=== PATIENT | female | born 1990 | race Caucasian/White ===

== ENCOUNTER 2024-03-18 13:39 | Observation (INO) ==
--- NOTE | 2024-03-18 14:13 | Emergency Department Note ---
History of Present Illness General Chief complaint: Shoulder Pain Stated complaint: neck pain, ref by pt Time Seen by Provider: 03/18/24 13:48 History of Present Illness Maximum Pain Intensity: 10 This is a 33-year-old female that presents to the emergency department via private vehicle with complaints of "right arm/neck pain". Patient is right-hand dominant. She states that late last week she began with some discomfort to the right side of the neck/shoulder area. She then notes that this progressively worsened over the weekend and then this past Sunday presented to [place] emergency department where she notes that a CT scan was performed of her neck. She does have the results on her phone which does show no acute fracture and some generative changes. The patient was discharged home she notes on a course of oral muscle relaxers as well as steroids. She also received an injection of Toradol. She notes that the pain has continued and then she followed up with her PCP and was referred to physical therapy which she did start today. She also received IM Toradol with her PCP yesterday. She states that physical therapy today was quite painful and ultimately sent here for further evaluation and management. Patient notes that the pain is on the right side of the neck between the right neck and the right shoulder that radiates down the right arm. She also notes pain shooting into the right thumb and right second digit. She denies any known trauma or injury. She denies any fevers or chills. She does note that the pain radiates also to the anterior shoulder/chest area and then down the arm. No central chest pain. No shortness of breath. No history of UT or PE. Patient notes she has an allergy to latex. She notes she is otherwise healthy. No pertinent surgeries. No history of neck surgery. Home Medications Medication Instructions Recorded Confirmed Type Saccharomyces boulardii [Daily 1 cap PO DIRECTED 11/20/22 03/18/24 History Probiotic (S. boulardii)] cetirizine 10 mg capsule (Zyrtec) 10 mg PO DAILY PRN Allergy Symptoms 11/20/22 03/18/24 History hydrocortisone 2.5 % topical cream 1 applic UT DAILY PRN hemorrhoids 11/20/22 03/18/24 Rx with perineal applicator #30 grams cholecalciferol (vitamin D3) 25 25 mcg PO DAILY 12/06/23 03/18/24 History mcg (1,000 unit) capsule fluoxetine 20 mg tablet 20 mg PO DAILY 12/06/23 03/18/24 History mecobalamin (vitamin B12) 1,000 1,000 mcg PO DAILY 12/07/23 03/18/24 History mcg chewable tablet carisoprodol 350 mg tablet 350 mg PO TID PRN muscle spasms 03/18/24 03/18/24 History methylprednisolone 4 mg tablet 4 mg PO DIRECTED 03/18/24 03/18/24 History Allergies Allergy/AdvReac Type Severity Reaction Status Date / Time azithromycin AdvReac Unknown Unknown Verified 03/18/24 21:59 hydromorphone [From Dilaudid] AdvReac Nausea Verified 03/18/24 17:51 Past Med/Surg History Problem List (Updated 03/18/24 @ 20:03 by Allen Mason PA-C) Anxiety Arm pain, right (Acute) Right cervical radiculopathy (Acute) Vitamin D deficiency Iron deficiency Irritable bowel syndrome Anxiety and depression Allergic rhinitis Surgical History History of placement of ear tubes [place] teeth extracted Family History Father Diabetes ESRD (end stage renal disease) Mother No problems noted. Brother Hypertension Brother No problems noted. 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 [employer] How many Children do You have: 2 Feels Safe at Home: Yes Diet: regular Diet Comment: regular/ limits lactose caffeine: Yes during the past year weight has: remained stable Dental Care, Regularly: Yes Physical Activity Frequency: Daily Seatbelt Use: always Sunscreen Use: Yes Review of Systems A total of 10 systems reviewed and were otherwise negative Physical Exam Vital Signs Vital Signs - 24 hr 03/18/24 13:42 03/18/24 14:31 03/18/24 14:38 Temperature 36.8 C Temperature Source Temporal Artery Scan Pulse Rate 84 Pulse Rate [Apical] 95 H Pulse Rhythm [Apical] Regular Pulse Strength [Apical] Normal Respiratory Rate 15 19 Respiratory Effort / Characteristics Non-Labored Spontaneous Non-Labored Spontaneous Respiratory Depth Normal Normal Respiratory Pattern Regular Blood Pressure 161/100 H Blood Pressure [Left Arm] 146/83 H Blood Pressure Mean 120 Blood Pressure Mean [Left Arm] 104 Pulse Oximetry 100 96 100 Oxygen Delivery Method Room Air Room Air Sepsis Recent Fever Within 48 Hours No Sepsis New/Unexplained Change in Mental Status No Sepsis Action Taken by Nursing No Action Required VITAL SIGNS - Vital signs and nursing notes were reviewed. GENERAL - 33-year-old female appearing her stated age who is in no acute distress. Communicates well with provider and answers questions appropriately. SKIN - Without rashes. The skin overlying the C-spine and surrounding tissues are within normal limits. No crepitus. No edema. No erythema. No herpetic lesions. HEAD - NC/AT. EYES - PERRL with EOMI bilaterally. Sclera anicteric. EARS - No deformities of external structures noted on gross examination bilaterally. External auditory canals without discharge or otorrhea. Tympanic membranes pearly blankenship without retraction or bulging. No fluid or purulent material visualized behind the TM. Handle of malleus, umbo, cone of light, pars tensa/flaccid all easily visualized. NOSE - Midline and without cyanosis. No epistaxis or purulent drainage noted. Septum midline without deviation or septal hematoma noted. MOUTH/OROPHARYNX - Without perioral cyanosis. Buccal mucosa pink and moist and without leukoplakia. Tongue midline with equal elevation of palate bilaterally. No tonsillar hypertrophy, erythema, or exudates noted. Good dentition noted. Rest, stridor, trismus, wheezing or tripoding. Normal phonation. NECK - Neck with FROM. No nuchal rigidity. There is no muscle spasm palpable within the posterior or lateral musculature of the C-spine. There is no reproducible tenderness to palpation overlying the C-spine spinous processes or paraspinous musculature. LUNGS - CTA CARDIAC - RRR EXTREMITIES - No clubbing or peripheral cyanosis. No pretibial edema present. +5/5 strength noted in UE/LE bilaterally. NEUROLOGIC - Cranial nerves grossly intact. Bilateral biceps reflexes within normal limits. PSYCH -alert, oriented and pleasant on examination. Course Administered Medications Discontinued Medications Acetaminophen (Acetaminophen 325 Mg Tab) 650 mg PO NOW STA Stop: 03/18/24 15:33 Last Admin: 03/18/24 15:42 Dose: 650 mg Documented By: LUIS Cyclobenzaprine HCl (Cyclobenzaprine Hcl 10 Mg Tab) 10 mg PO NOW STA Stop: 03/18/24 19:39 Last Admin: 03/18/24 20:20 Dose: 10 mg Documented By: LORIE Dexamethasone Sodium Phosphate (DexamethasonePf 10 Mg/Ml Vial) 6 mg IV NOW ONE Stop: 03/18/24 18:26 Last Admin: 03/18/24 18:34 Dose: 6 mg Documented By: LUIS Gabapentin (Gabapentin 100 Mg Cap) 100 mg PO NOW STA Stop: 03/18/24 19:50 Last Admin: 03/18/24 20:20 Dose: 100 mg Documented By: LORIE Hydromorphone HCl (Hydromorphone Inj 0.5 Mg/0.5 Ml Syr) 0.5 mg IV NOW STA Stop: 03/18/24 14:11 Last Admin: 03/18/24 14:35 Dose: 0.5 mg Documented By: DENISE Promethazine HCl (Phenergan) 25 mg in 51 mls @ 204 mls/hr IV NOW STA Stop: 03/18/24 18:28 Last Infusion: 03/18/24 18:37 Dose: Infused Documented By: Admin: 03/18/24 18:21 Dose: 204 mls/hr Documented By: MORENITA Acetaminophen (Ofirmev) 1,000 mg in 100 mls @ 400 mls/hr IV NOW STA Stop: 03/18/24 19:24 Last Infusion: 03/18/24 19:31 Dose: Infused Documented By: Admin: 03/18/24 19:15 Dose: 400 mls/hr Documented By: LACY Ketorolac Tromethamine (Ketorolac Tromethamine 15 Mg/Ml Vial) 10 mg IV NOW ONE Stop: 03/18/24 15:30 Last Admin: 03/18/24 15:35 Dose: 10 mg Documented By: MORENITA Lidocaine (Lidocaine 5% 1 Patch) 1 patch TD NOW STA Stop: 03/18/24 15:33 Last Admin: 03/18/24 15:42 Dose: 1 patch Documented By: LUIS Ondansetron HCl (Ondansetron Inj 2 Mg/Ml 2 Ml Vial) 4 mg IV NOW STA Stop: 03/18/24 14:11 Last Admin: 03/18/24 14:34 Dose: 4 mg Documented By: DENISE Ondansetron HCl (Ondansetron Inj 2 Mg/Ml 2 Ml Vial) Confirm Administered Dose 4 mg .ROUTE .STK-MED ONE Stop: 03/18/24 16:51 Last Admin: 03/18/24 16:56 Dose: Not Given Documented By: LUIS Ondansetron HCl (Ondansetron Inj 2 Mg/Ml 2 Ml Vial) 4 mg IV NOW STA Stop: 03/18/24 16:50 Last Admin: 03/18/24 16:54 Dose: 4 mg Documented By: LUIS Pantoprazole Sodium (Pantoprazole 40 Mg Tab) 40 mg PO NOW STA Stop: 03/18/24 19:40 Last Admin: 03/18/24 20:20 Dose: 40 mg Documented By: LORIE Medical Decision Making Laboratory Data 03/18/24 14:20 03/18/24 14:20 Lab Results 03/18/24 Range/Units 14:20 WBC 9.93 (4.8-10.8) K/ul RBC 4.52 (4.20-5.40) M/uL Hgb 11.5 L (12.0-16.0) g/dl Hct 37.3 (37.0-47.0) % MCV 82.5 (80.0-100.0) fL MCH 25.4 (25.0-34.0) pg MCHC 30.8 L (32.0-36.0) g/dL RDW Std Deviation 41.0 (36.4-46.3) fL RDW Coeff of Nick 13.7 (11.5-14.5) % Plt Count 358 (130-400) K/uL MPV 9.7 (9.4-12.4) fL Immature Gran % (Auto) 0.3 % Neut % (Auto) 68.1 % Lymph % (Auto) 24.2 % [place] % (Auto) 6.7 % Eos % (Auto) 0.2 % Baso % (Auto) 0.5 % Neut # (Auto) 6.76 H (1.40-6.50) K/uL Lymph # (Auto) 2.40 (1.20-3.40) K/uL [place] # (Auto) 0.67 H (0.11-0.59) K/uL Eos # (Auto) 0.02 (0.00-0.50) K/uL Baso # (Auto) 0.05 (0.00-0.20) K/uL Immature Gran # (Auto) 0.03 (0.01-0.20) K/uL Sodium 140 (136-145) mmol/L Potassium 3.7 (3.5-5.1) mmol/L Chloride 105 (98-107) mmol/L Carbon Dioxide 26 (21-32) mmol/L Anion Gap 9 (3-11) BUN 17 (6-23) mg/dl Creatinine 0.57 L (0.6-1.2) mg/dl Est Cr Clr Drug Dosing 134.0 ml/min Est GFR ( Amer) 140.2 ml/min Est GFR (Non-Af Amer) 121.0 ml/min BUN/Creatinine Ratio 29.8 H (10-20) Glucose 89 (70-99(Fasting)) mg/dl Calcium 9.8 (8.6-10.3) mg/dl Total Bilirubin 0.3 (0.2-1.0) mg/dl AST 17 (13-39) U/L ALT 29 (7-52) U/L Alkaline Phosphatase 62 (34-104) U/L Troponin I High Sens < 2.3 (0-14) pg/ml Total Protein 8.2 (6.0-8.3) gm/dl Albumin 4.9 (3.4-5.0) gm/dl Globulin 3.3 (2.5-4.0) gm/dl Albumin/Globulin Ratio 1.5 (0.9-2) HCG, Qual Negative (Negative) Imaging Data Radiologist's Impression: Cervical Spine MRI 03/18/24 14:10 MRI OF THE CERVICAL SPINE WITHOUT CONTRAST CLINICAL HISTORY: Right sided neck, shoulder, arm pain COMPARISON: None. TECHNIQUE: Utilizing a 1.5 Jessika magnet and dedicated coil, multiplanar, multiecho imaging of the cervical spine was performed without IV contrast. FINDINGS: There is reversal of the cervical lordosis. Vertebral body heights are maintained. No marrow edema or marrow replacement is present. Cervical cord signal and caliber are normal. There is no intracanalicular mass or fluid collection. Paravertebral soft tissues are unremarkable. Visualized portions of the posterior fossa are unremarkable. C2-C3: The central canal and neural foramen are patent. C3-C4: Mild disc bulge is present. This contacts the ventral aspect of the cord. There is mild central canal stenosis. The neural foramen are patent. C4-C5: Posterior disc osteophyte complex, eccentric to the right, contacts the ventral aspect of the cord. There is mild to moderate central canal stenosis. The neural foramen are patent. C5-C6: Posterior disc osteophyte complex is noted. This contacts the ventral aspect of the cord. There is mild to moderate central canal stenosis. There is also moderate to severe right neural foraminal stenosis due to uncovertebral hypertrophy and disc osteophyte complex. There is mild narrowing of the left neural foramen. C6-C7: Posterior disc osteophyte complex contacts the ventral aspect of the cord. There is mild to moderate central canal stenosis. There is moderate to severe right neural foraminal stenosis due to disc ossify complex and uncovertebral hypertrophy. Left neural foramen is patent. C7-T1: The central canal and neural foramen are patent. IMPRESSION: 1. Moderate multilevel degenerative disc disease within the cervical spine with multiple disc bulges with associated osteophyte formation. Mild to moderate multilevel central canal stenosis. Normal cervical cord signal and caliber. 2. Moderate to severe multilevel neural foraminal narrowing, most pronounced at the right C5-C6 and C6-C7 neural foramen. ACT 112: Negative or not required by law. Electronically signed by: Gilbert Gómez M.D. 03/18/2024 5:58 PM [facility] Narrative Patient was seen and evaluated as above in room D05. Review was performed of triage nursing notes and vital signs. I did review pertinent previous visits and patient history. A thorough history and physical examination was performed. The patient presents to us today for assessment of right-sided neck pain that radiates down the right arm. At times will radiate into the right thumb and right index finger. She is right-hand dominant. No known trauma or injury. No infectious symptoms. At the present time there is no appreciated weakness. Biceps reflexes are within normal limits bilaterally. Patient does note that she already had a CT scan of the C-spine which does show some degenerative changes. She does have the report on her phone at bedside. The patient denies any history of C-spine surgery. The pain does radiate down from the right posterior lateral neck area between the right side of the neck and shoulder area down the right arm. It also is in the posterior right shoulder and anterior right shoulder nearing the anterior lateral chest wall on the right. There is no central chest pain. No shortness of breath. The patient has started a course of oral steroids as prescribed on recent visit as well as started oral muscle relaxers with minimal relief. The patient was referred here today from physical therapy that she started today noting significant discomfort and pain. Current pain is 10/10. Options of care were discussed with the patient. IV access was established. Labs were drawn. EKG reveals normal sinus rhythm at a rate of 75 bpm. QTc 446. QRS 84. There is no ST elevation. She was medicated with IV analgesia and also provided antiemetics. Laboratory studies reveal no leukocytosis. Mild anemia noted with hemoglobin of 11.5. No emergent metabolic disturbance. hCG negative. Mild anemia is chronic and not new. Troponin returned within normal range. At this time in the setting of progressively worsening right-sided neck pain that radiates down the right arm which is of the dominant upper extremity despite oral analgesia, steroids and muscle relaxers I do believe that proceeding at this time with further imaging of the C-spine is warranted. Patient in agreement with this plan. The patient's symptoms at this time are felt to be related to cervical radiculopathy. Although right shoulder etiology possible, we will proceed with workup at this time to further evaluate the C- spine. Patient did experience some nausea and episode of vomiting following the Dilaudid. Additional IV Zofran was administered. Patient was able to tolerate the MRI. While being wheeled back from MRI to her room she did have return of the vomiting. Vomiting did subside. I did add Dilaudid to the allergy list as an adverse reaction causing nausea/vomiting. Patient case signed out to Kareem Pacheco PA-C at 5 PM on 03/18/2024 pending MRI of the cervical spine. GCS: 15 In the evaluation and treatment of this patient the following differential diagnoses were entertained: Cervical radiculopathy, sprain, strain, ear infection, Adam's angina, shoulder injury, rotator cuff injury, UT, fracture, dislocation, subluxation, contusion, among others. Impression & Plan Right cervical radiculopathy, Arm pain, right Discharge Plan Visit Data Chief Complaint: Shoulder Pain Stated Complaint: neck pain, ref by pt ED Provider: Virgil Clemens ED Midlevel Provider: Kareem Pacheco Discharge Problem: Right cervical radiculopathy, Arm pain, right Patient Disposition: Admitted As Inpatient Discharge Instructions Interventions: ED Discharge Assessment Last Done: 03/18/24 21:33
[2024-03-18] MEDS: ONDANSETRON INJ 2 MG/ML 2 ML VIAL IV STA ×2 (14:34→16:54)
[2024-03-18] MEDS: HYDROmorphone INJ 0.5 MG/0.5 ML SYR IV STA (14:35)
[2024-03-18 14:53] LABS: Basophils # (auto) 0.05 K/uL (0.00-0.20); Basophils % (auto) 0.5 %; Eosinophils # (auto) 0.02 K/uL (0.00-0.50); Eosinophils % (auto) 0.2 %; Hematocrit (blood only) 37.3 % (37.0-47.0); Hemoglobin 11.5 g/dl (12.0-16.0); Immature Granulocytes # (auto) 0.03 K/uL (0.01-0.20); Immature Granulocytes % (auto) 0.3 %; Lymphocytes % (auto) 24.2 %; Mean Corpuscular Hemoglobin 25.4 pg (25.0-34.0); Mean Corpuscular Hgb Conc 30.8 g/dL (32.0-36.0); Mean Corpuscular Volume 82.5 fL (80.0-100.0); Mean Platelet Volume 9.7 fL (9.4-12.4); Monocytes # (auto) 0.67 K/uL (0.11-0.59); Monocytes % (auto) 6.7 %; Neutrophils # (auto) 6.76 K/uL (1.40-6.50); Neutrophils % (auto) 68.1 %; Platelet Count 358 K/uL (130-400); RDW Coefficient of Variation 13.7 % (11.5-14.5); Red Blood Count 4.52 M/uL (4.20-5.40); White Blood Count 9.93 K/ul (4.8-10.8)
[2024-03-18 14:57] LABS: Alanine Aminotransferase 29 U/L (7-52); Albumin Globulin Ratio 1.5 (0.9-2); Albumin Level 4.9 gm/dl (3.4-5.0); Alkaline Phosphatase 62 U/L (34-104); Anion Gap 9 (3-11); Aspartate Aminotransferase 17 U/L (13-39); BUN Creatinine Ratio 29.8 (10-20); Bilirubin,Total 0.3 mg/dl (0.2-1.0); Blood Urea Nitrogen 17 mg/dl (6-23); Calcium 9.8 mg/dl (8.6-10.3); Carbon Dioxide 26 mmol/L (21-32); Chloride 105 mmol/L (98-107); Est GFR (African American) 140.2 ml/min; Globulin 3.3 gm/dl (2.5-4.0); Glucose 89 mg/dl (70-99(Fasting)); Potassium 3.7 mmol/L (3.5-5.1); Sodium 140 mmol/L (136-145); Total Protein 8.2 gm/dl (6.0-8.3)
[2024-03-18 15:04] LABS: Pregnancy Test, Serum Negative (Negative)
[2024-03-18] MEDS: KETOROLAC TROMETHAMINE 15 MG/ML VIAL IV ONE (15:35)
[2024-03-18] MEDS: ACETAMINOPHEN 325 MG TAB PO STA (15:42)
[2024-03-18] MEDS: LIDOCAINE 5% 1 PATCH TD STA (15:42)
[2024-03-18 16:47] LABS: Troponin I High Sensitivity < 2.3 pg/ml (0-14)
[2024-03-18] MEDS: ONDANSETRON INJ 2 MG/ML 2 ML VIAL ONE (16:56)
--- NOTE | 2024-03-18 17:34 | Electrocardiogram Report ---
Test Reason : Blood Pressure : / mmHG Vent. Rate : 075 BPM Atrial Rate : 075 BPM P-R Int : 162 ms QRS Dur : 084 ms QT Int : 400 ms P-R-T Axes : 064 071 041 degrees QTc Int : 446 ms Normal sinus rhythm Normal ECG No previous ECGs available Confirmed by Nakul Franco ([id number]) on 03/18/2024 5:34:31 PM Referred By: REFERRED SELF Confirmed By:Nakul Franco
--- NOTE | 2024-03-18 17:53 | Emergency Department Note ---
ED Visit Note This patient's care was transferred to me from Misael Rhoades PA-C at change of shift. This is a 33-year-old female who presented to the emergency department with complaint of right arm/neck pain. The patient's pain radiates from the neck into the upper arm and down into the thumb and index finger. Symptoms started late last week. It is noted that the patient was seen at the [place] emergency department two days ago with a normal CT scan of the neck. She was treated with steroids and muscle relaxers without any relief. She was also seen yesterday by her PCP, and was administered IM Toradol. Patient also reports that she was seen today at physical therapy which was quite painful. At the time of transfer of care, labs were completed, reviewed and were normal. The patient also had an ECG and troponin that were negative, as the patient was complaining of some pain radiating into the right upper chest region. The patient was awaiting an MRI of the cervical spine as well. When the patient returned from MRI imaging, she was nauseous. I did order additional IV Zofran. A noncontrast MRI of the cervical spine was completed, showing multilevel degenerative changes, with moderate to severe neuroforaminal narrowing, most pronounced at right C5-6 and C6-7. She has multiple disc bulges with associated osteophyte formation as well. There is normal cervical cord signal and caliber. Upon further reevaluation, the patient was still quite nauseous. An order was placed for IV Phenergan. At this point, because the patient has had significant pain that was only reduced to a 7 out of 10, as well as persistent nausea, I offered to reach out to Dr. Sheehan, spine surgeon on- call for other recommendations. The case was discussed with Dr. Sheehan, who recommended hospitalist admission with pain management consultation for an MARGE procedure. He will also stop by tomorrow to evaluate the patient. The patient was in agreement with this plan. I then reached out to the [facility] hospitalist service (Dr. Leiva), who has agreed to evaluate the patient. Please see hospitalist, pain management and Dr. Sheehan's dictations for further treatment and final disposition. I did order additional IV Decadron and Tylenol, with the patient continuing to rate her discomfort a 7 out of 10 at the time of transfer of care to the hospitalist service. DIAGNOSIS: 1. Intractable cervical radicular pain 2. Right C6 cervical radiculitis .
--- NOTE | 2024-03-18 18:00 | Magnetic Resonance Report ---
MRI OF THE CERVICAL SPINE WITHOUT CONTRAST CLINICAL HISTORY: Right sided neck, shoulder, arm pain COMPARISON: None. TECHNIQUE: Utilizing a 1.5 Jessika magnet and dedicated coil, multiplanar, multiecho imaging of the ce rvical spine was performed without IV contrast. FINDINGS: There is reversal of the cervical lordosis. Vertebral body heights are maintained. No marrow edema or marrow replacement is present. Cervical cord signal and caliber are normal. There is no intracanalic ular mass or fluid collection. Paravertebral soft tissues are unremarkable. Visualized portions of th e posterior fossa are unremarkable. C2-C3: The central canal and neural foramen are patent. C3-C4: Mild disc bulge is present. This contacts the ventral aspect of the cord. There is mild centr al canal stenosis. The neural foramen are patent. C4-C5: Posterior disc osteophyte complex, eccentric to the right, contacts the ventral aspect of the cord. There is mild to moderate central canal stenosis. The neural foramen are patent. C5-C6: Posterior disc osteophyte complex is noted. This contacts the ventral aspect of the cord. The re is mild to moderate central canal stenosis. There is also moderate to severe right neural foramina l stenosis due to uncovertebral hypertrophy and disc osteophyte complex. There is mild narrowing of t he left neural foramen. C6-C7: Posterior disc osteophyte complex contacts the ventral aspect of the cord. There is mild to m oderate central canal stenosis. There is moderate to severe right neural foraminal stenosis due to di sc ossify complex and uncovertebral hypertrophy. Left neural foramen is patent. C7-T1: The central canal and neural foramen are patent. IMPRESSION: 1. Moderate multilevel degenerative disc disease within the cervical spine with multiple disc bulges with associated osteophyte formation. Mild to moderate multilevel central canal stenosis. Normal cerv ical cord signal and caliber. 2. Moderate to severe multilevel neural foraminal narrowing, most pronounced at the right C5-C6 and C 6-C7 neural foramen. ACT 112: Negative or not required by law. Electronically signed by: Gilbert Gómez M.D. 03/18/2024 5:58 PM
[2024-03-18] MEDS: PROMETHAZINE 25 MG/51 ML BAG IV STA (18:21)
[2024-03-18] MEDS: dexAMETHasone**PF** 10 MG/ML VIAL IV ONE (18:34)
[2024-03-18] MEDS: ACETAMINOPHEN 1,000 MG/100 ML VIAL IV STA (19:15)
[2024-03-18] MEDS ORDERED: ONDANSETRON INJ 2 MG/ML 2 ML VIAL IV PRN (19:24)
--- NOTE | 2024-03-18 19:24 | History & Physical Report ---
Date of Service March 18, 2024 Assessment & Plan (1) Right cervical radiculopathy: Plan: Admit to [facility] on pulse oximetry Currently stable nontoxic-appearing Presented to the ED with ongoing/progressive right back/right upper extremity pain over the past week No recent trauma to the area Was first seen at the [facility] on 03/16/[address] of the cervical spine without acute trauma or dislocation Has been prescribed p.o. 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 Sheehan has been consulted and will see the patient tomorrow but does not believe she is a surgical candidate at this time, recommends pain management consult as well Patient became significantly nauseous with nonbloody emesis after receiving hydromorphone in the ED, will hold narcotics for now Will continue with scheduled Tylenol, as needed Toradol for pain, scheduled Flexeril and gabapentin, lidocaine patch and heat Will give 10 mg p.o. Flexeril now Was given 6 mg IV dexamethasone in the ED, will continue with 60 mg IV Solu- Medrol daily starting tomorrow morning Orthopedic spine and pain management consult placed Will start daily pantoprazole while on IV Toradol Parent Zofran for nausea Continue to monitor on pulse oximetry Regular diet Will hold a.m. labs this she was without acute abnormalities today (2) Arm pain, right: Plan: See cervical (3) Anxiety: Plan: Continue fluoxetine Plan The patient was discussed with Dr. Leiva at the time of admission History of Present Illness Chief Complaint: Cervical radiculopathy Primary Care Provider: DO Pilar Valdes is a 33-year-old female with a past medical history significant for cervical spine pain, iron deficiency anemia and anxiety who presented to the [facility] ED on 03/18/2024 for ongoing radicular cervical spine pain. She was seen for the symptoms at the [facility] emergency department on 03/16/2024. She had a CT of the neck performed which showed chronic changes but was negative for acute fracture or dislocation. She was discharged home on a course of muscle relaxers and steroids and had an injection of Toradol. She followed up with PCP on 03/17/2024 where she had another injection of Toradol and was referred for physical therapy. She was seen in physical therapy earlier today and unfortunately symptoms progressed. She was noted to be hypertensive on arrival 161/100, tachycardic 95, but otherwise stable. Labs including CBC, CMP, high-sensitivity troponin and qualitative beta hCG were unremarkable. MRI of the cervical spine without contrast was read as moderate multilevel degenerative disc disease within the cervical spine with multiple disc bulges with associated osteophyte formation. Mild to moderate multilevel central canal stenosis. Normal cervical cord signal and caliber. Moderate to severe multilevel neuroforaminal narrowing, most pronounced at the right C5-C6 and C6-C7 neural foramen. Prior to admission the patient was given 650 mg p.o. Tylenol, 6 mg IV dexamethasone, 3.5 Donovan 10 mg IV Toradol, lidocaine patch. Unfortunately having a lot of major significantly nauseous which consistent vomiting, she received 2 doses of 4 mg IV Zofran and 25 mg IV promethazine. The ED did speak with Dr. Sheehan who will see the patient tomorrow but states that she is likely not a surgical candidate at this time and recommended pain management referral. Patient was lying in bed in mild distress due to pain at time of exam with her significant other bedside. She confirms the above history, no acute trauma, just progressive symptoms. States that symptoms typically start in the right mid back and radiate down into her right lateral arm to the elbow. Described as sharp/stabbing pain, currently a 7 out of 10 but has been a 10 out of 10 for much of the day. Denies paresthesias or weakness in the bilateral upper extremities. Please refer to Dr. Leiva's attestation for any changes to treatment plan Allergies Allergy/AdvReac Type Severity Reaction Status Date / Time Latex, Natural Rubber Allergy Mild contact Verified 03/18/24 22:50 reaction azithromycin AdvReac Unknown Unknown Verified 03/18/24 21:59 hydromorphone [From Dilaudid] AdvReac Nausea Verified 03/18/24 17:51 Home Medications Medication Instructions Recorded Confirmed Type Saccharomyces boulardii [Daily 1 cap PO DIRECTED 11/20/22 03/18/24 History Probiotic (S. boulardii)] cetirizine 10 mg capsule (Zyrtec) 10 mg PO DAILY PRN Allergy Symptoms 11/20/22 03/18/24 History hydrocortisone 2.5 % topical cream [address] DAILY PRN hemorrhoids 11/20/22 03/18/24 Rx with perineal applicator #30 grams cholecalciferol (vitamin D3) 25 25 mcg PO DAILY 12/06/23 03/18/24 History mcg (1,000 unit) capsule fluoxetine 20 mg tablet 20 mg PO DAILY 12/06/23 03/18/24 History mecobalamin (vitamin B12) 1,000 1,000 mcg PO DAILY 12/07/23 03/18/24 History mcg chewable tablet carisoprodol 350 mg tablet 350 mg PO TID PRN muscle spasms 03/18/24 03/18/24 History methylprednisolone 4 mg tablet 4 mg PO DIRECTED 03/18/24 03/18/24 History methylprednisolone 4 mg tablets in 4 mg PO DAILY #21 ea 03/19/24 Rx a dose pack (Medrol (Tushar)) Past Med/Surg History Problem List (Updated 03/19/24 @ 08:34 by Rl Harvey PA-C) Cervical spinal stenosis Anxiety Arm pain, right (Acute) Right cervical radiculopathy (Acute) Vitamin D deficiency Iron deficiency Irritable bowel syndrome Anxiety and depression Allergic rhinitis Surgical History History of placement of ear tubes [place] teeth extracted Family History Father Diabetes ESRD (end stage renal disease) Mother No problems noted. Brother Hypertension Brother No problems noted. 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 [employer] How many Children do You have: 2 Feels Safe at Home: Yes Diet: regular Diet Comment: regular/ limits lactose caffeine: Yes during the past year weight has: remained stable Dental Care, Regularly: Yes Physical Activity Frequency: Daily Seatbelt Use: always Sunscreen Use: Yes Assistive Devices: None Physical Exam 2 Physical Exam: Physical Exam: General: In mild distress due to pain, stated age, non-toxic appearing HEENT: Normocephalic, atraumatic, no scleral icterus, pupils around round, symmetrical, and reactive to light, moist mucus membranes, trachea midline, no thyromegaly Chest/Pulm: No respiratory distress, symmetrical chest expansion, clear breath sounds throughout Cardiac: RRR, no murmurs noted Abdomen: Negative for ascites and bruising, normoactive bowel sounds, soft, non-tender to palpation throughout Musculoskeletal: Symmetrical and without signs of acute trauma, symmetrical strength in the BL upper extremities, no pain on direct palpation of the cervical or thoracic spine, patient with significantly reproducible tenderness to palpation of the right lateral paraspinal muscles near the C5-C7 region causing muscle spasms, no crepitus or step off's noted on palpation of the same area Extremities: Radial, dorsalis pedis, and posterior tibial pulses are intact and symmetrical, no edema noted in the BL LE's Skin: Warm, dry, no rashes , lesions, or scars noted Neuro: Alert and oriented to person, place, month, year, and president, no focal defects, symmetrical sensation and strength in the BL cervical spine and BL UE's Psych: Mild distress due to pain, calm and cooperative during the exam Results & Data Results & Data Vital Signs (Past 12 Hours) Vital Signs Temp Pulse Pulse Resp BP BP Pulse Ox 03/18/24 14:38 95 H 19 146/83 H 100 03/18/24 14:31 96 03/18/24 13:42 36.8 C 84 15 161/100 H 100 O2 Del Method 03/18/24 14:38 03/18/24 14:31 Room Air 03/18/24 13:42 Room Air Laboratory Results Abnormal lab results 03/18/24 Range/Units 14:20 Hgb 11.5 L (12.0-16.0) g/dl MCHC 30.8 L (32.0-36.0) g/dL Neut # (Auto) 6.76 H (1.40-6.50) K/uL Creek # (Auto) 0.67 H (0.11-0.59) K/uL Creatinine 0.57 L (0.6-1.2) mg/dl BUN/Creatinine Ratio 29.8 H (10-20) Diagnostic Findings Cervical Spine MRI 03/18/24 14:10 MRI OF THE CERVICAL SPINE WITHOUT CONTRAST CLINICAL HISTORY: Right sided neck, shoulder, arm pain COMPARISON: None. TECHNIQUE: Utilizing a 1.5 Jessika magnet and dedicated coil, multiplanar, multiecho imaging of the cervical spine was performed without IV contrast. FINDINGS: There is reversal of the cervical lordosis. Vertebral body heights are maintained. No marrow edema or marrow replacement is present. Cervical cord signal and caliber are normal. There is no intracanalicular mass or fluid collection. Paravertebral soft tissues are unremarkable. Visualized portions of the posterior fossa are unremarkable. C2-C3: The central canal and neural foramen are patent. C3-C4: Mild disc bulge is present. This contacts the ventral aspect of the cord. There is mild central canal stenosis. The neural foramen are patent. C4-C5: Posterior disc osteophyte complex, eccentric to the right, contacts the ventral aspect of the cord. There is mild to moderate central canal stenosis. The neural foramen are patent. C5-C6: Posterior disc osteophyte complex is noted. This contacts the ventral aspect of the cord. There is mild to moderate central canal stenosis. There is also moderate to severe right neural foraminal stenosis due to uncovertebral hypertrophy and disc osteophyte complex. There is mild narrowing of the left neural foramen. C6-C7: Posterior disc osteophyte complex contacts the ventral aspect of the cord. There is mild to moderate central canal stenosis. There is moderate to severe right neural foraminal stenosis due to disc ossify complex and uncovertebral hypertrophy. Left neural foramen is patent. C7-T1: The central canal and neural foramen are patent. IMPRESSION: 1. Moderate multilevel degenerative disc disease within the cervical spine with multiple disc bulges with associated osteophyte formation. Mild to moderate multilevel central canal stenosis. Normal cervical cord signal and caliber. 2. Moderate to severe multilevel neural foraminal narrowing, most pronounced at the right C5-C6 and C6-C7 neural foramen. ACT 112: Negative or not required by law. Electronically signed by: Gilbert Gómez M.D. 03/18/2024 5:58 PM Code Status & VTE Plan Code Status Full code VTE Prophylaxis Plan VTE Prophylaxis will be ordered: Yes Supervising Physician Co-Signing Physician Notes Patient seen and examined, chart reviewed, case discussed with MEEK Mason and I agree with the assessment and plan as above. In brief, patient is a 33yo female presenting with severe cervical radicular pain ongoing. She has been taking PO steroids and muscle relaxers with minimal effect. Patient in significant discomfort +S1/S2, regular, no m/r/g Lungs CTA Abd soft, NT/ND Ext - warm, well perfused Labs and images reviewed Assessment/Plan Multi-modal pain management with steroids, Flexeril, Tylenol and Toradol. Patient unable to tolerate opiates due to extreme nausea. Pain management consultation appreciated Ortho-Spine consultation appreciated Remainder as above PG Care Time/CCT Total # of Minutes Spent Total Time Spent with Patient: Total time spent is greater than 50% in coordination of care (as documented) at patient's floor/unit and/or counseling patient: Coding [place] [address] INT INP/OBS CARE 2/55MIN Patient Type Established Medical Decision Making Moderate Complexity Diagnoses Right cervical radiculopathy M54.12 Arm pain, right M79.601 Anxiety F41.9
[2024-03-18] MEDS: CYCLOBENZAPRINE HCL 10 MG TAB PO STA (20:20)
[2024-03-18] MEDS: PANTOprazole 40 MG TAB PO STA (20:20)
[2024-03-18] MEDS: GABAPENTIN 100 MG CAP PO STA (20:20)
[2024-03-18] MEDS ORDERED: CYCLOBENZAPRINE HCL 5 MG TAB PO SCH (21:00)
[2024-03-18] MEDS ORDERED: Nursing to Pharmacy Communication SCH (22:00)
[2024-03-19] MEDS: ACETAMINOPHEN 325 MG TAB PO SCH (00:33)
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
--- NOTE | 2024-03-19 08:36 | Pain Management Consultation ---
Date of Consultation March 19, 2024 Assessment & Plan (1) Right cervical radiculopathy: (2) Cervical spinal stenosis: Plan 1. Patient presenting with acute right-sided cervical radiculopathy probably involving the C6 distribution with evidence of MRI findings of moderate to severe multilevel neuroforaminal narrowing most pronounced at the right C5-6 and C6-7 with a positive Spurling's maneuver failing to respond to conservative management. Treatment options were discussed. We did discussed pursuing C7-T1 interlaminar MARGE. Side effects versus benefits of this procedure were discussed at length with the patient. All her questions were answered. She would like to proceed with the procedure. The procedure will be be completed in the outpatient pain clinic. We will be attempting to obtain authorization for the procedure and then scheduling based on authorization. 2. Will recommend progressing her gabapentin to 300 mg 3 times daily. Side effects risk benefits were discussed and she verbalized understanding. 3. Recommend continuing with steroid in a tapering dose, muscle relaxers, and NSAIDs. Thank you for allowing us to participate in the care of Mrs. Beavers History of Present Illness Reason for Consultation: Right-sided upper extremity radicular pain Requesting Physician: Allen Mason PA-C Attending Physician: Osiris Lomas MD History of Present Illness Mrs. Beavers is a 33-year-old white female who was admitted due to intractable right upper extremity radicular pain traveling to level the hand. Patient reports her current pain complaint began approximately 3-4 days ago potentially precipitated after a chiropractic regulation. She typically performs chiropractic mutilations on a monthly basis for management of a history of some chronic right upper extremity radicular pain. She reports the morning after her manipulation her pain significantly increased in the right upper extremity traveling to the level the hand involving the thumb and first finger. She describes the pain as sharp, shooting and burning in characteristic involving the shoulder area extending to the ulnar aspect of the forearm and traveling along the thumb and first finger. She does have some paresthesia and a sense of tightness. She denies overt weaknesses. She has no known history of an acute injury or history of traumatic injury to the head or neck. Patient has minimal axial neck pain complaint at this time. She has no left upper extremity radicular pattern pain or paresthesia. She has been evaluated emergently at [facility], her PCPs office and [facility] over the past few days. She has been provided Toradol, steroids and she did have a single physical therapy appointment which exacerbated her symptoms. She did undergo CT scan of the neck as well as a MRI. Patient is currently rating her pain a 4/10 at its best and 9/10 at its worst. She does report some relief of symptoms if she leans her head to the left. Patient reported a similar episode approximately 5 years ago which occurred while she was so she is unable to undergo imaging. She managed her symptoms through physical therapy with resolution of complaints until a few days ago. Patient has no lower extremity pain, paresthesia or weakness. She denies bowel/bladder incontinence or saddle anesthesia. Patient has no further constitutional complaints. Plan of care discussed with Dr. Sophia Lema. Pain Assessment Full Body Front + Back: 2 1. Right upper extremity radicular pain in a predominant C6 distribution Pain scale - at its best (0-10): 4 Pain scale - at its worst (0-10): 9 Allergies Allergy/AdvReac Type Severity Reaction Status Date / Time Latex, Natural Rubber Allergy Mild contact Verified 03/18/24 22:50 reaction azithromycin AdvReac Unknown Unknown Verified 03/18/24 21:59 hydromorphone [From Dilaudid] AdvReac Nausea Verified 03/18/24 17:51 Home Medications Medication Instructions Recorded Confirmed Type Saccharomyces boulardii [Daily 1 cap PO DIRECTED 11/20/22 03/18/24 History Probiotic (S. boulardii)] cetirizine 10 mg capsule (Zyrtec) 10 mg PO DAILY PRN Allergy Symptoms 11/20/22 03/18/24 History hydrocortisone 2.5 % topical cream 1 applic DC DAILY PRN hemorrhoids 11/20/22 03/18/24 Rx with perineal applicator #30 grams cholecalciferol (vitamin D3) 25 25 mcg PO DAILY 12/06/23 03/18/24 History mcg (1,000 unit) capsule fluoxetine 20 mg tablet 20 mg PO DAILY 12/06/23 03/18/24 History mecobalamin (vitamin B12) 1,000 1,000 mcg PO DAILY 12/07/23 03/18/24 History mcg chewable tablet carisoprodol 350 mg tablet 350 mg PO TID PRN muscle spasms 03/18/24 03/18/24 History methylprednisolone 4 mg tablet 4 mg PO DIRECTED 03/18/24 03/18/24 History Pain History Pain Intensity Pain scale - at its best (0-10): 4 Pain scale - at its worst (0-10): 9 Patient History Surgical History History of placement of ear tubes [place] teeth extracted Family History Father Diabetes ESRD (end stage renal disease) Mother No problems noted. Brother Hypertension Brother No problems noted. Denies family history of Ovarian cancer Prostate cancer Myocardial infarction Breast cancer Colorectal cancer Social History Smoking Status: Never smoker Second Hand Exposure: No; Do You Dip or Chew Tobacco: No; Hx Alcohol Use: No Hx Substance Use: No Preferred Language: Guamanian Communication Ability: Effective Visual Impairment: No Limitations Hearing Ability: Normal Enrollment Eligibility Representative Required: No Beliefs That Will Affect Care: None marital status: Current Living Situation: Family Current Living Situation Comment: spouse and 2 sons current occupational status: employed 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 Speech and thought process appropriate. Mood and affect appropriate. Cognition intact. Head: Normocephalic and atraumatic. ENT: No evidence of nasal or oral mucosal lesions. Mucous membranes are moist. Eyes: Pupils equal round reactive to light. Neck: Supple without adenopathy and full range of motion. Spurling's maneuver positive on the right reproducing right upper extremity radicular pain. Spurling's maneuver negative on the left. Nontender over the midline. No cervical facet joint tenderness. Minimally tender to palpation throughout the right trapezius with minimal spasm. Right shoulder: Full range of motion without limitation. Negative Neer impingement. Negative empty can maneuvering. Negative Antoine maneuver. Upper extremities: Sensation is intact to sharp and dull. Cristela sign negative bilaterally. Strength testing was 5/5 throughout without focal deficit. DTRs 1+ at the biceps, brachialis and triceps and equal bilaterally. No evidence of thenar or intrinsic muscular atrophy. Chest: Nontender to palpation of the costosternal junction. Lower extremities: Sensation intact without deficit. Strength testing 5/5 and equal. Neurologic: Cranial nerves grossly intact. Ambulatory function not witnessed. Results (Pain Clinic) Diagnostic Review MRI Findings: [place], [place] [phone] Magnetic Resonance Report Patient: DIANNA BEAVERS Admit Date: 03/18/24 MR#: [id number] Address1: [address] Acct ID:[id number] Address2: Date: 1990 [facility] Zip: [place] [address] Age: 33 Location: ED Sex: F Room/Bed: Att Phy: Diagnosis: neck pain, ref by pt Anisa Phy: Velvet Palomares DO Service Date: 03/18/24 [facility] Phy: Interpreting Phy: Gilbert Gómez MDAit Phy: Ordering Phy: Misael Rhoades PA-C cc: ~ MRI OF THE CERVICAL SPINE WITHOUT CONTRAST CLINICAL HISTORY: Right sided neck, shoulder, arm pain COMPARISON: None. TECHNIQUE: Utilizing a 1.5 Jessika magnet and dedicated coil, multiplanar, multiecho imaging of the cervical spine was performed without IV contrast. FINDINGS: There is reversal of the cervical lordosis. Vertebral body heights are maintained. No marrow edema or marrow replacement is present. Cervical cord signal and caliber are normal. There is no intracanalicular mass or fluid collection. Paravertebral soft tissues are unremarkable. Visualized portions of the posterior fossa are unremarkable. C2-C3: The central canal and neural foramen are patent. C3-C4: Mild disc bulge is present. This contacts the ventral aspect of the cord. There is mild central canal stenosis. The neural foramen are patent. C4-C5: Posterior disc osteophyte complex, eccentric to the right, contacts the ventral aspect of the cord. There is mild to moderate central canal stenosis. The neural foramen are patent. C5-C6: Posterior disc osteophyte complex is noted. This contacts the ventral aspect of the cord. There is mild to moderate central canal stenosis. There is also moderate to severe right neural foraminal stenosis due to uncovertebral hypertrophy and disc osteophyte complex. There is mild narrowing of the left neural foramen. C6-C7: Posterior disc osteophyte complex contacts the ventral aspect of the cord. There is mild to moderate central canal stenosis. There is moderate to severe right neural foraminal stenosis due to disc ossify complex and uncovertebral hypertrophy. Left neural foramen is patent. C7-T1: The central canal and neural foramen are patent. IMPRESSION: 1. Moderate multilevel degenerative disc disease within the cervical spine with multiple disc bulges with associated osteophyte formation. Mild to moderate multilevel central canal stenosis. Normal cervical cord signal and caliber. 2. Moderate to severe multilevel neural foraminal narrowing, most pronounced at the right C5-C6 and C6-C7 neural foramen. ACT 112: Negative or not required by law. Electronically signed by: Gilbert Gómez M.D. 03/18/2024 5:58 PM Dictated: 03/18/241751 Transcribed: 03/18/241751 Previous Records Review Previous Records: personally reviewed by
[2024-03-19] MEDS: PANTOprazole 40 MG TAB PO SCH (08:52)
[2024-03-19] MEDS: methylPREDNISolone 60 MG in SYRINGE 0 ML IV SCH (08:52)
[2024-03-19] MEDS: CYCLOBENZAPRINE HCL 5 MG TAB PO SCH (08:53)
[2024-03-19] MEDS: FLUoxetine HCL 20 MG CAP PO SCH (08:54)
[2024-03-19] MEDS: KETOROLAC TROMETHAMINE 15 MG/ML VIAL IV PRN (08:58)
[2024-03-19] MEDS ORDERED: GABAPENTIN 100 MG CAP PO SCH (09:00)
[2024-03-19] MEDS ORDERED: methylPREDNISolone 125 MG/2 ML VIAL IV SCH (09:00)
--- NOTE | 2024-03-19 09:43 | Orthopedic Consultation ---
Date of Consultation March 19, 2024 Assessment & Plan (1) Cervical spinal stenosis: Assessment cervical spinal stenosis with radiculopathy. Plan I have discussed with this patient review MRI findings and clinical course. She clearly has evidence of neuroforaminal disease at multiple levels of the cervical spine. There is loss of normal cervical lordosis. We are going to recommend a course of interventional pain management. I would also like her to revisit physical therapy for cervical stabilization strengthening exercises. She would need to maintain this on a regular basis with a home-based program. She she does understand prolonged sitting and computer work is strenuous to the neck. At t his point we would see her in the office for follow-up in the next several weeks to assess her progress. History of Present Illness Reason for Consultation: Neck and arm pain Attending Physician: Osiris Lomas MD History of Present Illness This is a very pleasant 33-year-old female presents the emergency room yesterday with significant right upper extremity radiculopathy. She denies any specific trauma fall or event. She does state that she had an episode of similar symptoms approximately 5 years ago during . This was managed with physical therapy and she had done well. She does maintain regular therapy exercises to control her symptoms. 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 She is feeling some improvement from the medications overnight. Allergies Allergy/AdvReac Type Severity Reaction Status Date / Time Latex, Natural Rubber Allergy Mild contact Verified 03/18/24 22:50 reaction azithromycin AdvReac Unknown Unknown Verified 03/18/24 21:59 hydromorphone [From Dilaudid] AdvReac Nausea Verified 03/18/24 17:51 Home Medications Medication Instructions Recorded Confirmed Type Saccharomyces boulardii [Daily 1 cap PO DIRECTED 11/20/22 03/18/24 History Probiotic (S. boulardii)] cetirizine 10 mg capsule (Zyrtec) 10 mg PO DAILY PRN Allergy Symptoms 11/20/22 03/18/24 History hydrocortisone 2.5 % topical cream 1 applic SD DAILY PRN hemorrhoids 11/20/22 03/18/24 Rx with perineal applicator #30 grams cholecalciferol (vitamin D3) 25 25 mcg PO DAILY 12/06/23 03/18/24 History mcg (1,000 unit) capsule fluoxetine 20 mg tablet 20 mg PO DAILY 12/06/23 03/18/24 History mecobalamin (vitamin B12) 1,000 1,000 mcg PO DAILY 12/07/23 03/18/24 History mcg chewable tablet carisoprodol 350 mg tablet 350 mg PO TID PRN muscle spasms 03/18/24 03/18/24 History methylprednisolone 4 mg tablet 4 mg PO DIRECTED 03/18/24 03/18/24 History Patient History Surgical History History of placement of ear tubes [place] teeth extracted Family History Father Diabetes ESRD (end stage renal disease) Mother No problems noted. Brother Hypertension Brother No problems noted. 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 She has excellent strength detailed testing upper 70s with a 5/5 finger intrinsics biceps triceps deltoids. Sensory symmetric intact. Negative Cristela sign. Results & Data Vital Signs (Past 12 Hours) Vital Signs Temp Pulse Resp BP Pulse Ox O2 Del Method 03/19/24 08:30 36.7 C 75 16 115/73 98 Room Air 03/18/24 22:30 36.9 C 71 16 145/84 H 100 Room Air
[2024-03-19] MEDS: GABAPENTIN 300 MG CAP PO SCH (11:17)
--- NOTE | 2024-03-19 18:30 | Discharge Summary ---
Date of Service March 19, 2024 Admission HPI Per Admitting Provider Pilar is a 33-year-old female with a past medical history significant for cervical spine pain, iron deficiency anemia and anxiety who presented to the [facility] ED on 03/18/2024 for ongoing radicular cervical spine pain. She was seen for the symptoms at the [place] emergency department on 03/16/2024. She had a CT of the neck performed which showed chronic changes but was negative for acute fracture or dislocation. She was discharged home on a course of muscle relaxers and steroids and had an injection of Toradol. She followed up with PCP on 03/17/2024 where she had another injection of Toradol and was referred for physical therapy. She was seen in physical therapy earlier today and unfortunately symptoms progressed. She was noted to be hypertensive on arrival 161/100, tachycardic 95, but otherwise stable. Labs including CBC, CMP, high-sensitivity troponin and qualitative beta hCG were unremarkable. MRI of the cervical spine without contrast was read as moderate multilevel degenerative disc disease within the cervical spine with multiple disc bulges with associated osteophyte formation. Mild to moderate multilevel central canal stenosis. Normal cervical cord signal and caliber. Moderate to severe multilevel neuroforaminal narrowing, most pronounced at the right C5-C6 and C6-C7 neural foramen. Prior to admission the patient was given 650 mg p.o. Tylenol, 6 mg IV dexamethasone, 3.5 Donovan 10 mg IV Toradol, lidocaine patch. Unfortunately having a lot of major significantly nauseous which consistent vomiting, she received 2 doses of 4 mg IV Zofran and 25 mg IV promethazine. The ED did speak with Dr. Sheehan who will see the patient tomorrow but states that she is likely not a surgical candidate at this time and recommended pain management referral. Patient was lying in bed in mild distress due to pain at time of exam with her significant other bedside. She confirms the above history, no acute trauma, just progressive symptoms. States that symptoms typically start in the right mid back and radiate down into her right lateral arm to the elbow. Described as sharp/stabbing pain, currently a 7 out of 10 but has been a 10 out of 10 for much of the day. Denies paresthesias or weakness in the bilateral upper extremities. Please refer to Dr. Leiva's attestation for any changes to treatment plan Principal Diagnosis Right cervical radiculopathy Discharge Exam Physical Exam Physical Exam: Physical Exam: General: In mild distress due to pain, stated age, non-toxic appearing HEENT: Normocephalic, atraumatic, no scleral icterus, pupils around round, symmetrical, and reactive to light, moist mucus membranes, trachea midline, no thyromegaly Chest/Pulm: No respiratory distress, symmetrical chest expansion, clear breath sounds throughout Cardiac: RRR, no murmurs noted Abdomen: normoactive bowel sounds, soft, non-tender to palpation throughout Musculoskeletal: Symmetrical and without signs of acute trauma, symmetrical strength in the BL upper extremities, no pain on direct palpation of the cervical or thoracic spine, patient with significantly reproducible tenderness to palpation of the right lateral paraspinal muscles near the C5-C7 region causing muscle spasms Extremities: Radial, dorsalis pedis, and posterior tibial pulses are intact and symmetrical, no edema noted in the BL LE's Skin: Warm, dry, no rashes , lesions, or scars noted Neuro: Alert and oriented x 4, no focal defects, symmetrical sensation and strength in the BL cervical spine and BL UE's Psych: Mild distress due to pain, calm and cooperative during the exam Discharge Data Allergies Allergy/AdvReac Type Severity Reaction Status Date / Time Latex, Natural Rubber Allergy Mild contact Verified 03/18/24 22:50 reaction azithromycin AdvReac Unknown Unknown Verified 03/18/24 21:59 hydromorphone [From Dilaudid] AdvReac Nausea Verified 03/18/24 17:51 Consultations 03/18/24 19:10 Consult Orthopedic Spine Surgery Stat ED Decision to Admit Stat 03/18/24 19:42 Consult Pain Management Routine Ordered Studies 03/18/24 14:10 MR cervical spine wo con Stat Hospital Course (1) Right cervical radiculopathy: (2) Arm pain, right: (3) Anxiety: Plan 1) Right cervical radiculopathy: Plan: Presented to the ED with ongoing/progressive right back/right upper extremity pain over the past week, No paraesthesias or weakness No recent trauma to the area Was first seen at the [facility] on 03/16/[address] of the cervical spine without acute trauma or dislocation - MRI showed disc bulging at C5-6 and C6-7 Has been prescribed p.o. steroids and muscle relaxer outpatient and attempted [employer] with progression of pain - Received IV steroids and IV Toradol (couldn't tolerate narcotics) - Ortho is recommending pain management as well as return to PT. - Pain mgt recommends steroid dose pack upon DC from hospital Total Time Total Time Spent Total Time Spent (In Minutes): Refer to attending physician attestation Discharge Plan Discharge Items Patient Disposition: Home - Self-Care Reason For Visit: CERVICAL RADICULOPATHY Discharge Diagnosis: Cervical spinal stenosis Activity: Resume your previous activity Non-emergency contact: Primary Care Provider Call non-emergency contact if: you have any medication questions, your pain is concerning for you and your temperature is above 101.5 Follow-up/Referrals: Sophia Lema DO [Physician] - (Cervical spinal stenosis) Velvet Palomares DO [Primary Care Provider] - 03/25/24 7:20 am Jamison Sheehan DO [Surgeon] - (cervical spinal stenosis) Diet: Regular Addtl Attending Provider Instructions: You were admitted to the hospital for cervical spinal stenosis. You were treated with muscle relaxers and steroids. A discharge summary will be sent to your primary care physician to ensure continuity of care. Please bring this discharge summary with you to your next office appointment so that your provider can review it at that time. Follow-up appointments: * Make a follow-up appointment with your PCP within the next week. It is very important that you follow up with them shortly after discharge from the hospital. * We have requested a follow-up appointment with Dr. Sheehan in a couple weeks to reassess cervical spinal stenosis. * He should be in contact with the pain management clinic about procedures in the upcoming weeks. * Keep all your follow-up appointments as already scheduled. If you cannot make an appointment, notify your provider. Medications: Your medication list has been reviewed and reconciled upon discharge to ensure accuracy and continuity of care. An updated list of all your medications is included with your hospital discharge paperwork. Please review this list closely, and make note of any changes. * We sent a new medication called methylprednisone to your pharmacy. Take methylprednisone as instructed on labeling as a tapered dose. * If you have any issues filling these prescriptions, please call [phone] and ask to leave a message for Dr. Moore. * Take your medications as instructed; do not skip a dose of your medicines. Make sure all of your doctors know every medicine you are taking (including [id number] medicines, vitamins, and supplements). Call your primary care provider before taking any new medicines (including over- the-counter medicines, vitamins, and supplements), because some of these may interact with your current medications, or may make your symptoms worse. Tell your primary care provider if you cannot afford your medications. CONTACT YOUR PRIMARY CARE PROVIDER if you experience any of the following: * Worsening of symptoms * Fever, chills, or fatigue * Difficulty following your treatment plan, or difficulty taking medications CALL 911 OR GO TO THE EMERGENCY DEPARTMENT if you experience any of the following: * Sudden, severe abdominal pain or nausea/vomiting * Severe chest pain, or chest pain that radiates (moves) to your jaw or arm * Sudden, severe shortness of breath or difficulty breathing Thank you for allowing us to participate in your care. Pending Studies at Discharge: No Stand-Alone Forms: [employer], Smoking Cessation Medications and DC Order Prescriptions: New methylprednisolone [Medrol (Tushar)] 4 mg tablets,dose pack 4 mg PO DAILY Qty: 21 0RF Continued mecobalamin (vitamin B12) 1,000 mcg tablet,chewable 1,000 mcg PO DAILY Rx Instructions: otc, as directed. unable to verify Saccharomyces boulardii [Daily Probiotic (S. boulardii)] 1 cap PO DIRECTED Rx Instructions: otc, as directed Zyrtec 10 mg capsule 10 mg PO DAILY PRN (Reason: Allergy Symptoms) Rx Instructions: otc, as directed. unable to verify hydrocortisone 2.5 % cream with perineal applicator 1 applic [place] DAILY PRN (Reason: hemorrhoids) Qty: 30 1RF Rx Instructions: otc, as directed. unable to verify cholecalciferol (vitamin D3) 25 mcg (1,000 unit) capsule 25 mcg PO DAILY Rx Instructions: otc, as directed. unable to verify fluoxetine 20 mg tablet 20 mg PO DAILY carisoprodol 350 mg tablet 350 mg PO TID PRN (Reason: muscle spasms) methylprednisolone 4 mg tablet 4 mg PO DIRECTED Rx Instructions: directions on package Discharge Orders: Discharge Order (Routine); Ordered 03/19/24 Ordered By: Thai Moore Admission Data Admit Date/Time: 03/18/24 19:24 Attending Provider: Osiris Lomas Admit Provider: Tania Leiva Primary Care Provider: Velvet Palomares. Other Providers: Law Lindo; Tania Leiva; Jamison Sheehan Other Interventions: Discharge Summary Assessment (RN) Last Done: 03/19/24 15:33 Supervising Physician Co-Signing Physician Notes Attending Physician Supervision Note: I independently interviewed and examined the patient and verified the hamm history and physical, reviewed labs and image studies and agree with findings and care plan noted above.
== END 2024-03-19 16:10 | disposition home or self-care (01) ==
LOC: 3N 13:39 → ED 13:39 → SUATTDRO 19:24 → 3N 21:35